=== PATIENT | male | born 1960 | race Caucasian/White ===

== ENCOUNTER 2020-01-24 12:47 | Outpatient (CLI) | payer SELFPAY ==
--- NOTE | 2020-01-24 13:03 | CT_ITS ---
WS: [id number] CT scan of the chest without IV contrast, additional two-dimensional coronal and sagittal reconstruct ion was performed. 01/24/2020 Clinical Data: LUNG NODULE Comparison: CTA chest, 09/18/2018. DLP: 603.[address] scans at [facility] use at least one of these dose optimization techniques: automat ed exposure control; mA and/or kV adjustment per patient size (includes targeted exams where dose is matched to clinical indication); or iterative reconstruction. Findings: No nodules, masses or effusions are seen. There is scarring in the right upper lobe. The scar extends from the right hilum to the lung periphery. Apical bullous emphysematous changes present. No pneumon ia or pneumothorax is noted. There is coronary artery calcification. The trachea bifurcates normally into the bronchi. The heart size is normal with no pericardial effusion. The pulmonary arterial syste m and thoracic aorta demonstrate no abnormalities or dilatations. There is no axillary or significant mediastinal adenopathy. The upper abdomen only fatty infiltration of the liver. CT/CT chest wo con [id number] Impression: 1. Right upper lobe scar. 2. Apical bullous emphysema. 3. Fatty infiltration of the liver. 4. Negative for lung nodules or masses.
== END 2020-01-24 12:48 | disposition home or self-care (01) ==
LOC: RADWPI 12:52
PROVIDERS: Family Provider Internal Medicine; PCP Internal Medicine; Visit Provider Internal Medicine
DX: R91.1 Solitary pulmonary nodule (principal); J43.9 Emphysema, unspecified; K76.0 Fatty (change of) liver, not elsewhere classified
CPT/HCPCS: 71250

== ENCOUNTER 2020-08-25 10:04 | Emergency (ER) | payer SELFPAY ==
[2020-08-25 10:21] VITALS: BP 128/76; PULSE 96; RESP 20; TEMP 36.9; O2SAT 99; BMI 23.6
--- NOTE | 2020-08-25 10:38 | XRR_ITS ---
PROCEDURE INFORMATION: Exam: XR Chest, 1 View Exam date and time: 08/25/2020 10:55 AM Age: 59 years old Clinical indication: Cough; Additional info: Dyspnea/cough TECHNIQUE: Imaging protocol: XR of the chest Views: 1 view. COMPARISON: CT chest [facility] [id number] 01/24/2020 1:11 PM FINDINGS: Lungs: Emphysema. Subtle opacity right upper lobe laterally. Correlate regarding known history. Correlate with prior CT chest. Pleural space: Unremarkable. No pleural effusion. No pneumothorax. Heart/Mediastinum: Unremarkable. No cardiomegaly. Bones/joints: Unremarkable. XR/XR chest 1V portable [id number] IMPRESSION: Emphysema. Subtle opacity right upper lobe laterally. Correlate regarding known history. Correlate with prior CT chest. Lungs are otherwise well aerated.
--- NOTE | 2020-08-25 10:38 | ECG_ITS ---
[facility] Test Date: 2020-08-25 Pat Name: Elfego Balderas Department: Room: Gender: Male Lay Out Maker: : 1960 Requested By: Thomas Glass Order Number: [id number] Ramses MD: Jose Hogue M.D. Measurements Intervals [place] Rate: 92 P: 66 RI: 144 QRS: 85 QRSD: 86 T: 48 QT: 354 QTc: 439 Interpretive Statements SINUS RHYTHM NONSPECIFIC T-WAVE ABNORMALITY Compared to ECG 09/18/2018 15:53:58 T-wave abnormality now present Sinus tachycardia no longer present ST (T wave) deviation no longer present Electronically Signed On 08-26-2020 9:17:05 BABY ATTENDANT by Jose Hogue M.D. [id number]
[2020-08-25 10:49] LABS: Basophils # 0.1 10^3/uL (0.0-0.1); Basophils % 1.1 %; Eosinophils # 0.2 10^3/uL (0.0-0.8); Eosinophils % 1.2 %; Hematocrit 34.7 % (42.0-52.0); Hemoglobin 11.9 g/dL (11.7-16.6); Lymphocytes % 15.8 %; Mean Corpuscular HGB Conc 34.3 g/dL (30.0-36.0); Mean Corpuscular Volume 96.1 fL (80-94); Mean Platelet Volume 8.6 fL (7.4-10.4); Monocytes # 1.6 10^3/uL (0.2-0.9); Monocytes % 12.6 %; Neutrophils # 8.66 10^3/uL (1.8-7.7); Neutrophils % 68.9 %; Nucleated Red Blood Cells % 0 %; Platelet Count 285 10^3/cmm (130-400); Red Blood Count 3.61 10^6/uL (4.1-5.3); Red Cell Distribution Width 15.2 % (12.1-15.1); White Blood Count 12.6 10^3/uL (4.0-10.0)
--- NOTE | 2020-08-25 10:49 | ED_ITS ---
HPI - Recheck/Abnormal Lab/Rx General: Chief Complaint: Recheck/Abnormal Lab/Rx Stated Complaint: abnormal labs Time Seen by Provider: 08/25/20 10:36 History of Present Illness: HPI narrative: 59 yo male sent to [facility] ER with complaints of hyponatremia. Patient has leg edema as recently as started on spironolactone is also on Lasix. Patient drinks heavily and continues to drink he was offended by the suggestion that he should consider stopping. Previous CT showed fatty infiltration of the liver. He denies any chest pain denies any abdominal pain he has not had any confusion or disorientation no nausea vomiting or diarrhea. Reviewing his chart he has had hyponatremia in the past although not quite the extent being reported from the clinic lab. complaint: abnormal lab Initial visit (ago): day(s) Returns today for: called because of abnormal lab/test Symptoms since prior visit: no new symptoms Context: called for abnormal lab result Associated symptoms: none Review of Systems Const: Denies: fever(s), chills, body aches, change in appetite, fatigue or malaise ENMT: Denies: throat pain, ear or mastoid pain, nasal discharge or nasal congestion Card: Denies: chest pain, edema, dyspnea on exertion or orthopnea Resp: Denies: dyspnea, productive cough or non-productive cough GI: Denies: abdominal pain, nausea, vomiting, hematemesis, coffee ground emesis, diarrhea, constipation, bloating, hematochezia or melena : Denies: flank pain, dysuria, urinary frequency or urinary urgency Seth/Lymph: Reports: easy bruising and easy bleeding [facility] ED PFSH: Social History (Updated 08/25/20 @ 10:26 by Diego Howard RN) Smoking and tobacco status: current every day smoker cigarettes Packs smoked per day: 1 Alcohol intake: current Alcohol intake frequency: 3 or more drinks per day Alcohol type: beer Substance/Drug Use: never Physical Exam Const: COMMON NORMALS: no acute distress GENERAL APPEARANCE: cooperative and comfortable ORIENTATION/CONSCIOUSNESS: Yes awake, Yes oriented to person, Yes oriented to place and Yes oriented to time HENMT: COMMON NORMALS: normocephalic, atraumatic and hearing grossly normal bilaterally HEAD & SCALP: normocephalic and atraumatic Neck/C-Spine: COMMON NORMALS: no JVD Resp: COMMON NORMALS: normal respiratory effort, No retractions, No use of accessory muscles and clear to auscultation bilaterally AUSCULTATION: clear to auscultation bilaterally Cardio: COMMON NORMALS: no JVD, regular rate, regular rhythm and No murmurs present (Cardio) RATE: regular rate RHYTHM: regular rhythm GI: COMMON NORMALS: Soft to palpation INSPECTION: Yes abdominal distension AUSCULTATION: Yes normoactive bowel sounds PALPATION: Yes Soft to palpation, No Tenderness to palpation present (GI), No Guarding due to palpation present (GI) and Yes Hepatomegaly present Extremity: GENERAL: Yes edema (2+ lower extremity edema to the level proximal to the knee.) Neuro: SENSORIUM/ORIENTATION: Yes oriented to person, Yes oriented to place and Yes oriented to time Skin: GENERAL SKIN EXAM: dry skin and ecchymosis OTHER: Patient has significant ecchymosis of his arms and forearms. No laceration. Course Vital Signs: Vital signs: Vital Signs Temperature 98.5 F 08/25/20 10:21 Pulse Rate 95 08/25/20 11:07 Respiratory Rate 20 H 08/25/20 10:21 Blood Pressure 124/73 08/25/20 11:07 Pulse Oximetry 99 08/25/20 10:21 MDM - Recheck/Abnormal Lab/Rx MDM Narrative: Medical decision making narrative: Patient is essentially asymptomatic his hyponatremia suspect it is because largely by his alcoholism and contributed to his to his a while by the Lasix. Would have him stop Lasix start and increase his spironolactone. For IV fluids. I do not think hospitalization will be necessary as the patient is essentially asymptomatic and the cause of this is known. He is not interested in the IV fluids nor is he interested in any way of stopping drinking and is quite specific about that. Encouraged him to consider as if he continues to drink this will continue to worsen his albumin is already significantly decreased. I would recommend that he follow-up with his primary care doctor early next week can return to the emergency room if he has further problems. Lab Data: Labs: Lab Results 08/25/20 08/25/20 08/25/20 Range/Units 10:38 10:38 10:38 WBC 12.6 H (4.0-10.0) 10^3/ uL RBC 3.61 L (4.1-5.3) 10^6/u L Hgb 11.9 (11.7-16.6) g/dL Hct 34.7 L (42.0-52.0) % MCV 96.1 H (80-94) fL MCH 33.0 (28.0-34.0) pg MCHC 34.3 (30.0-36.0) g/dL RDW 15.2 H (12.1-15.1) % Plt Count 285 (130-400) 10^3/c mm MPV 8.6 (7.4-10.4) fL Neut % (Auto) 68.9 % Lymph % (Auto) 15.8 % [place] % (Auto) 12.6 % Eos % (Auto) 1.2 % Baso % (Auto) 1.1 % Neut # (Auto) 8.66 H (1.8-7.7) 10^3/u L Lymph # (Auto) 2.0 (0.8-4.8) 10^3/u L [place] # (Auto) 1.6 H (0.2-0.9) 10^3/u L Eos # (Auto) 0.2 (0.0-0.8) 10^3/u L Baso # (Auto) 0.1 (0.0-0.1) 10^3/u L Nucleated RBC % (a uto) 0 % Nucleated RBCs # 0.0 /100WBC PT 14.70 (12.1-14.9) SECO NDS INR 1.11 (0.8-1.2) APTT 34.7 (23.9-36.7) SECO NDS Sodium 120 L (136-145) mmol/L Potassium 3.9 (3.5-5.1) mmol/L Chloride 89 L (98-107) mmol/L Carbon Dioxide 25 (22-29) mmol/L Anion Gap 9.9 (5-19) BUN 4 L (6-20) mg/dL Creatinine 0.5 L (0.7-1.2) mg/dL GFR Calculation 171.4 H (90-130) mL/min Glucose 97 (65-115) mg/dL Calculated Osmolal ity 247 L (285-295) mOsm/k g Calcium 7.9 L (8.5-10.5) mg/dL Magnesium 2.1 (1.7-2.3) mg/dL Total Bilirubin 2.0 H (0.15-1.2) mg/dL AST 52 H (0-40) U/L ALT 23 (0-41) U/L Alkaline Phosphata se 262 H (40-130) IU/L Total Protein 6.4 L (6.6-8.7) g/dL Albumin 2.3 L (3.5-5.2) g/dL Globulin 4.1 (1.3-4.6) g/dL Discharge Plan Discharge Patient Disposition: Home Clinical Impression: Alcohol abuse, Chronic hyponatremia, Cirrhosis with alcoholism Condition: Stable Prescriptions: Changed spironolactone 25 mg Tablet 50 mg PO DAILY@0630 Qty: 0 RF: 0 No Action furosemide 40 mg Tablet 40 mg PO DAILY@0630 RF: 0 ibuprofen 200 mg Tablet 600 mg PO Q6H PRN (Reason: Pain) RF: 0 albuterol sulfate 90 mcg/actuation Hfa Aerosol Inhaler 2 puff INHALATION QID PRN (Reason: Shortness Of Breath) RF: 0 milk thistle 1 tab PO DAILY@0630 RF: 0 Discharge Orders: Discharge ED (Routine); Ordered 08/25/20 Ordered By: Thomas Brown Referrals: Chele Moctezuma DO [Primary Care Provider] - Activity Restrictions/Additional Instructions: Recommend abstinence from alcohol. Follow-up with your doctor next week. Recommend that you stop the Lasix and increase the spironolactone to 50 mg daily. Coding Level of Care Code ED Hammer Smith for Kendrick Chu
[2020-08-25 11:07] VITALS: BP 106/74; BP 107/72; BP 124/73; PULSE 110; PULSE 95
[2020-08-25 11:26] LABS: Alanine Aminotransferase 23 U/L (0-41); Albumin Level 2.3 g/dL (3.5-5.2); Alkaline Phosphatase 262 IU/L (40-130); Anion Gap 9.9 (5-19); Aspartate Amino Transferase 52 U/L (0-40); Blood Urea Nitrogen 4 mg/dL (6-20); Calcium 7.9 mg/dL (8.5-10.5); Carbon Dioxide 25 mmol/L (22-29); Chloride 89 mmol/L (98-107); Globulin 4.1 g/dL (1.3-4.6); Glomerular Filtration Rate 171.4 mL/min (90-130); Glucose 97 mg/dL (65-115); Magnesium 2.1 mg/dL (1.7-2.3); Osmolality Calculated 247 mOsm/kg (285-295); Potassium 3.9 mmol/L (3.5-5.1); Sodium 120 mmol/L (136-145); Total Protein 6.4 g/dL (6.6-8.7)
[2020-08-25 11:37] LABS: INR 1.11 (0.8-1.2)
[2020-08-25 11:38] LABS: Partial Thromboplastin Time 34.7 SECONDS (23.9-36.7)
[2020-08-25 13:15] VITALS: BP 117/79; PULSE 96; RESP 18; O2SAT 98
--- NOTE | 2020-08-28 13:10 | DCPLANNER ---
manager metrology had message to schedule a follow up appointment for patient with primary care physician, Dr. Moctezuma at [facility]. manager metrology called [facility], a follow up appointment was scheduled for Thursday, September 17, 2020 at 10:[address] Moctezuma. manager metrology called patient and gave patient the appointment information.
--- NOTE | 2020-10-26 15:46 | DCPLANNER ---
Patient had a follow up appointment with on 09.17.20 at [facility] [place] - appointment was cancelled per Dr. Moctezuma.
== END 2020-08-25 13:17 | disposition home or self-care (01) ==
PROVIDERS: Emergency Provider Family Medicine; PCP Internal Medicine
DX: E87.1 Hypo-osmolality and hyponatremia (principal); K70.30 Alcoholic cirrhosis of liver without ascites; F10.10 Alcohol abuse, uncomplicated; F17.210 Nicotine dependence, cigarettes, uncomplicated
CPT/HCPCS: 12345; 71045; 80053; 83735; 85025; 85610; 85730; 93005; 99282; 99283

== ENCOUNTER 2020-09-25 08:21 | Emergency (ER) | payer SELFPAY ==
[2020-09-25 08:24] VITALS: BP 126/67; PULSE 103; RESP 16; TEMP 36.4; O2SAT 100; BMI 23.0
--- NOTE | 2020-09-25 08:25 | W.ED.FALL ---
HPI - Fall General: Chief Complaint: Fall Stated Complaint: Fall/ Head collision/skin tear Time Seen by Provider: 09/25/20 08:22 Source: patient and family Mode of arrival: wheelchair Limitations: no limitations History of Present Illness: HPI Narrative: Patient is a 59-year-old male who presents to ED today for evaluation following a slip and fall. Patient tells me he was checking into the [facility] for a paracentesis when he slipped on the ice and fell. He states he struck the right frontal portion of his head. There was no LOC. Patient is not on anticoagulation. He does not complain of a headache or neck pain. He reports chronic back pain that is currently at his baseline. He states he sustained a few skin tears to his right hand. Patient's last tetanus is unknown. He is also complaining of some right leg pain. Patient states he normally does not ambulate well at baseline. He has not tried to walk on the extremity since the incident. MD complaint: fall Onset (ago): minute(s) Fall from: standing Fall witnessed: yes, by family and yes, by bystander Place fall occurred: other ([facility]/hospital ) Loss of consciousness: None Prolonged down time: no Symptoms prior to fall: none Context: tripped/slipped (ice) Location of injury: head Location of injury - extremities: Right: hand and lower leg Associated symptoms-after fall: Reports no associated symptoms; Denies chest pain, headache(s), lightheadedness or neck pain Review of Systems Const: Denies: fever(s) or chills Eyes: Denies: change in vision, blurry vision or photophobia Card: Reports: edema (chronic LE edema) and swelling of feet/ankles (chronic); Denies: chest pain, palpitations, lightheadedness, syncope or pre-syncope Resp: Denies: dyspnea GI: Denies: nausea or vomiting Musc: Reports: extremity pain (R leg); Denies: neck pain, back pain, joint pain or joint swelling Skin/Breast: Reports: other (skin tears to R hand) Neuro: Denies: headache(s) [facility] ED PFSH: Social History (Updated 08/25/20 @ 10:26 by Diego Howard RN) Smoking and tobacco status: current every day smoker cigarettes Packs smoked per day: 1 Alcohol intake: current Alcohol intake frequency: 3 or more drinks per day Alcohol type: beer Physical Exam Const: COMMON NORMALS: no acute distress, patient oriented x3, no limitations and alert GENERAL APPEARANCE: cooperative ORIENTATION/CONSCIOUSNESS: Yes awake, Yes oriented to person, Yes oriented to place and Yes oriented to time HENMT: COMMON NORMALS: normocephalic, hearing grossly normal bilaterally, EAC's normal and TM's normal bilaterally HEAD & SCALP: normocephalic and other (small abrasion to R frontal ) FACE & SINUS: normal facial exam EXTERNAL AUDITORY CANAL: EAC's normal TYMPANIC MEMBRANE: TM's normal bilaterally Neck/C-Spine: COMMON NORMALS: full ROM CERVICAL SPINE: Yes cervical ROM normal, No pain with cervical ROM, No Cervical spine tenderness and No Paracervical muscle tenderness Resp: COMMON NORMALS: normal respiratory effort and clear to auscultation bilaterally AUSCULTATION: clear to auscultation bilaterally Cardio: COMMON NORMALS: regular rate and regular rhythm RATE: regular rate RHYTHM: regular rhythm GI: INSPECTION: Yes abdominal distension (scheduled for paracentesis today) Back/Pelvis: COMMON NORMALS: thoracic and lumbar spine normal to inspection, no thoracic nor lumbar tenderness and thoraco-lumbar ROM normal Extremity: NARRATIVE EXTREMITY EXAM: chronic bilateral LE 2+ pitting edema GENERAL: Yes normal exam except as noted OTHER: TTP R distal knee/proximal tib/fib; NV intact; no obvious deformities noted Neuro: [place] COMA SCALE: document GCS findings [place] coma scale eye opening: Spontaneous [place] coma scale verbal response: Orientated [place] coma scale motor response: Obey commands [place] coma scale total score: 15 COMMON NORMALS: patient oriented x3, CN's II-XII intact bilaterally, moves all extremities, no focal motor deficits and no sensory deficits noted SENSORIUM/ORIENTATION: Yes alert, Yes oriented to person, Yes oriented to place and Yes oriented to time Skin: NARRATIVE SKIN EXAM: two small superficial skin tears to dorsum of R hand/wrist Course Vital Signs: Vital signs: Vital Signs Temperature 97.5 F L 09/25/20 08:24 Pulse Rate 100 09/25/20 08:33 Respiratory Rate 18 09/25/20 08:33 Blood Pressure 126/67 09/25/20 08:33 Pulse Oximetry 100 09/25/20 08:33 MDM - Fall Imaging Data^: XR R knee: Radiologist's impression: [place] [id number] XRay Report Signed Patient: Ashkan Balderas #: [id number] : 1960Acct#:[id number] Age/Sex: 59 / MADM Date: 09/25/20 Loc: ERRoom/Bed: Attending Dr: Ordering Provider/Ordering MD: Lynda Sánchez Date of Service: 09/25/20 Procedure(s): XR knee RT 3V* [id number] Accession Number(s): [id number] Report Number: [id number] WS: [id number] RIGHT KNEE: 3 VIEW(S) TECHNIQUE: AP, oblique(s) and lateral. HISTORY: fall COMPARISON: None available. No fracture or dislocation. No joint space narrowing or osteophytes. No effusion. Diffuse osteopenia. Soft tissue vascular calcifications. XR/XR knee RT 3V* [id number] IMPRESSION: Osteopenia with no fracture. Dictated By:Linda Chester DO Signed By:Linda Chester DOSigned Date/Time:09/25/2058 DD/ 0857 XR R tib/fib: Radiologist's impression: [place] [address] XRay Report Signed Patient: Ashkan Balderas #: [id number] : 1960Acct#:[id number] Age/Sex: 59 / MADM Date: 09/25/20 Loc: ERRoom/Bed: Attending Dr: Ordering Provider/Ordering MD: Lynda Sánchez Date of Service: 09/25/20 Procedure(s): XR tibia fibula RT 2V 32212 Accession Number(s): [id number] Report Number: [id number] WS: [id number] RIGHT TIBIA-FIBULA 2 VIEWS HISTORY: fall COMPARISON: None available. No fracture, dislocation or joint abnormality. Osteopenia. Limited evaluation of the ankle. XR/XR tibia fibula RT 2V 02683 IMPRESSION: Osteopenia. No acute fractures. Ankle joint is not well visualized. Dictated By:Linda Chester DO Signed By:Linda Chesetr DOSigned Date/Time:09/25/2059 DD/ CT Head: Radiologist's impression: [address] [place] [address] CT Scan Report Signed Patient: Elfego Balderas Unit #: [id number] : 1960 Age/Sex: 59 / M ADM Date: 09/25/20 Loc: ER Room/Bed: Attending Dr: Ordering Provider/Ordering MD: Lynda Sánchez Date of Service: 09/25/20 Procedure(s): CT head wo con* 14331 Accession Number(s): [id number] Report Number: [id number] WS: [id number] CT HEAD NONCONTRAST HISTORY: trauma/fall TECHNIQUE: Contiguous axial imaging performed through the brain in 2.5 mm imaging. Bone and soft tissue windows. Sagittal and coronal reformats reviewed. All CT scans at [facility] use at least one of these dose optimization techniques: automated exposure control; mA and/or kV adjustment per patient size (includes targeted exams where dose is matched to clinical indication); or iterative reconstruction. DLP: 757.46 mGy.cm COMPARISON: None available. No acute intracranial hemorrhage, midline shift or mass effect. Moderate symmetric atrophy. Out of proportion to the patient's age. Cerebellar and cerebral atrophy with mild chronic microvascular ischemic disease. No prior large territory infarct. Ventricles: Normal size with no hydrocephalus. Paranasal sinuses: Mucoperiosteal thickening in the maxillary sinuses. Mastoid air cells: Cerumen in soft tissue in the LEFT external auditory canal. Calvarium and scalp: Skull is intact with no soft tissue edema or swelling. CT/CT head wo con* [id number] IMPRESSION: 1. No acute intracranial hemorrhage or edema. 2. Moderate symmetric atrophy out of proportion to the patient's age. Dictated By: Linda Chester DO Signed By: Linda Chester DO Signed Date/Time: 09/25/20904 DD/ 2 Discharge Plan Discharge Patient Disposition: Home Clinical Impression: Pain of right leg Fall from slipping on ice Qualifiers: Encounter type: initial encounter Qualified Code(s): W00.9XXA - Unspecified fall due to ice and snow, initial encounter Right temporal frontal scalp contusions Qualifiers: Encounter type: initial encounter Qualified Code(s): S00.03XA - Contusion of scalp, initial encounter Condition: Stable Prescriptions: No Action furosemide 40 mg Tablet 40 mg PO DAILY@0630 RF: 0 ibuprofen 200 mg Tablet 600 mg PO Q6H PRN (Reason: Pain) RF: 0 albuterol sulfate 90 mcg/actuation Hfa Aerosol Inhaler 2 puff INHALATION QID PRN (Reason: Shortness Of Breath) RF: 0 milk thistle 1 tab PO DAILY@0630 RF: 0 spironolactone 25 mg Tablet 50 mg PO DAILY@0630 Qty: 0 RF: 0 Discharge Orders: Discharge ED (Routine); Ordered 09/25/20 Ordered By: Lynda Sánchez Referrals: Chele Moctezuma DO [Primary Care Provider] - Patient Instructions: Opioid Safety Activity Restrictions/Additional Instructions: [facility] is committed to fighting the nationwide opiate epidemic. We are providing ALL patients with information regarding opiate safety. If you received opiate pain medication during your stay or if you received a prescription for opiate pain medication-please review this handout. If not, you may disregard. Thank you. Please keep the skin tears on your hand clean with warm soap and water. Monitor for signs of infection such as redness, swelling, drainage. If you continue to have pain in your right leg past 3 to 5 days, please follow-up with your primary care provider. Return to the emergency department for a severe headache, facial drooping, slurred speech, numbness or tingling to your extremities/face, or any other concerns you may have. Coding Level of Care Code ED Welder 2Nd Shift for Kendrick Fwbc Exam Comprehensive
--- NOTE | 2020-09-25 08:32 | CT_ITS ---
WS: [id number] CT HEAD NONCONTRAST HISTORY: trauma/fall TECHNIQUE: Contiguous axial imaging performed through the brain in 2.5 mm imaging. Bone and soft tiss ue windows. Sagittal and coronal reformats reviewed. All CT scans at [facility] use at ast one of these dose optimization techniques: automated exposure control; mA and/or kV adjustment pe r patient size (includes targeted exams where dose is matched to clinical indication); or iterative r econstruction. DLP: 757.46 mGy.cm COMPARISON: None available. No acute intracranial hemorrhage, midline shift or mass effect. Moderate symmetric atrophy. Out of proportion to the patient's age. Cerebellar and cerebral atrophy w ith mild chronic microvascular ischemic disease. No prior large territory infarct. Ventricles: Normal size with no hydrocephalus. Paranasal sinuses: Mucoperiosteal thickening in the maxillary sinuses. Mastoid air cells: Cerumen in soft tissue in the LEFT external auditory canal. Calvarium and scalp: Skull is intact with no soft tissue edema or swelling. CT/CT head wo con* [id number] IMPRESSION: 1. No acute intracranial hemorrhage or edema. 2. Moderate symmetric atrophy out of proportion to the patient's age.
--- NOTE | 2020-09-25 08:32 | XR_ITS ---
WS: [id number] RIGHT TIBIA-FIBULA 2 VIEWS HISTORY: fall COMPARISON: None available. No fracture, dislocation or joint abnormality. Osteopenia. Limited evaluation of the ankle. XR/XR tibia fibula RT 2V 10245 IMPRESSION: Osteopenia. No acute fractures. Ankle joint is not well visualized.
--- NOTE | 2020-09-25 08:32 | XR_ITS ---
WS: [id number] RIGHT KNEE: 3 VIEW(S) TECHNIQUE: AP, oblique(s) and lateral. HISTORY: fall COMPARISON: None available. No fracture or dislocation. No joint space narrowing or osteophytes. No effusion. Diffuse osteopenia. Soft tissue vascular calcifications. XR/XR knee RT 3V* [id number] IMPRESSION: Osteopenia with no fracture.
[2020-09-25 08:33] VITALS: BP 126/67; PULSE 100; RESP 18; O2SAT 100
[2020-09-25] MEDS: tetanus-diphtheria tox (adult) 0.5 mL SDV IM (09:05)
[2020-09-25 09:16] VITALS: BP 120/91; PULSE 98; RESP 18; TEMP 37.1; O2SAT 100
== END 2020-09-25 09:32 | disposition home or self-care (01) ==
PROVIDERS: Emergency Provider Physician Assistant; PCP Internal Medicine
DX: S00.03XA Contusion of scalp, initial encounter (principal); M79.604 Pain in right leg; W00.0XXA Fall on same level due to ice and snow, initial encounter; F17.210 Nicotine dependence, cigarettes, uncomplicated; Z23 Encounter for immunization
CPT/HCPCS: 70450; 73562; 73590; 90471; 90714; 99283

== ENCOUNTER 2020-09-25 09:38 | Outpatient (CLI) | payer SELFPAY ==
--- NOTE | 2020-09-25 09:49 | US_ITS ---
WS: [id number] ULTRASOUND-GUIDED THERAPEUTIC PARACENTESIS Procedure, risks, and complications have been explained to the patient. Consent is obtained. Utilizing aseptic technique and 1% buffered lidocaine, a small dermatome was made through which a 5 F rench Yueh catheter was inserted. Approximately 6000 ml of clear yellow peritoneal fluid was obtained without difficulty. No complications encountered. US/[place]acentesis abd w 08816 IMPRESSION: Uncomplicated paracentesis yielding 6000 ml of peritoneal fluid. There was additional peritoneal fluid present. No additional fluid removed at t his time as no albumin has been given and this is the patient's first paracente sis. Patient tolerated the procedure well. Consider and additional paracentesis in one week if clinically necessary.
== END 2020-09-25 09:39 | disposition home or self-care (01) ==
PROVIDERS: PCP Internal Medicine; Visit Provider Internal Medicine
DX: K70.30 Alcoholic cirrhosis of liver without ascites (principal)
CPT/HCPCS: 49083

== ENCOUNTER 2020-10-06 23:09 | Inpatient (IN) | payer SELFPAY ==
[2020-10-06 23:16] VITALS: BP 83/51; PULSE 101; RESP 18; O2SAT 99; BMI 23.0
[2020-10-06 23:20] VITALS: BP 83/51; PULSE 103; RESP 24; O2SAT 100
[2020-10-07] VITALS (40 sets, daily range): BP systolic 55–91; BP diastolic 34–62; PULSE 86–119; RESP 12–30; TEMP 35.9–36.4; O2SAT 91–100
--- NOTE | 2020-10-07 00:11 | CTR_ITS ---
PROCEDURE INFORMATION: Exam: CT Abdomen And Pelvis Without Contrast Exam date and time: 10/07/2020 12:29 AM Age: 59 years old Clinical indication: Patient HX: HX of alcohol cirrhosis C/O abd pain and distention PT is 11 days S/P 6 liter paracentesis TECHNIQUE: Imaging protocol: Computed tomography of the abdomen and pelvis without contrast. Radiation optimization: All CT scans at this facility use at least one of these dose optimization techniques: automated exposure control; mA and/or kV adjustment per patient size (includes targeted exams where dose is matched to clinical indication); or iterative reconstruction. COMPARISON: US paracentesis abd w [id number] 09/25/2020 9:18 AM RADIATION DOSE METRICS: Total DLP (mGy-cm): 816.19 FINDINGS: Pleural spaces: Small right pleural effusion. Liver: Cirrhotic appearing liver. Gallbladder and bile ducts: Normal. No calcified stones. No ductal dilation. Pancreas: Normal. No ductal dilation. Spleen: Normal. No splenomegaly. Adrenal glands: Normal. No mass. Kidneys and ureters: Normal. No hydronephrosis. Stomach and bowel: Diverticulosis without diverticulitis. Appendix: No evidence of appendicitis. Intraperitoneal space: Small amount of free air in the abdomen may be related to prior paracentesis, a perforated viscus is also consideration depending on the clinical presentation. Large amount of abdominal ascites. Vasculature: Coronary artery atherosclerotic calcifications. Lymph nodes: Unremarkable. No enlarged lymph nodes. Urinary bladder: Unremarkable as visualized. Reproductive: Unremarkable as visualized. Bones/joints: Unremarkable. No acute fracture. Soft tissues: Unremarkable. CT/CT abdomen pelvis wo con [id number] IMPRESSION: 1. Small amount of free air in the abdomen may be related to prior paracentesis, a perforated viscus is also consideration depending on the clinical presentation. 2. Small right pleural effusion. 3. Large amount of abdominal ascites. 4. Cirrhotic appearing liver. 5. Diverticulosis without diverticulitis. 6. Coronary artery atherosclerotic calcifications. Radiation Dose CTDIVOL = (mGy): DLP = 816.19 (mGy-cm)
--- NOTE | 2020-10-07 00:11 | XRR_ITS ---
PROCEDURE INFORMATION: Exam: XR Chest Exam date and time: 10/07/2020 12:14 AM Age: 59 years old Clinical indication: Shortness of breath; Additional info: SOB TECHNIQUE: Imaging protocol: XR of the chest Views: 1 view. COMPARISON: CR (CHEST, ) 08/25/2020 10:51 AM FINDINGS: Lungs: The lungs are clear bilaterally. Pulmonary vasculature within normal limits. Pleural space: No visible pneumothorax or pleural effusion. Heart/Mediastinum: Cardiomediastinal silhouette contour within normal limits. Bones/joints: No emergent findings identified. XR/XR chest 1V portable [id number] IMPRESSION: 1. No radiographic findings of acute cardiopulmonary disease.
[2020-10-07] MEDS: ondansetron 2 mg/ML SDV 2 mL 4 MG IVP (00:45)
[2020-10-07] MEDS: fentaNYL 50 mcg/mL INJ 2mL 25 MCG IVP (00:45)
[2020-10-07] MEDS: sodium chloride 0.9% 500 ML IV (00:45)
[2020-10-07 01:16] LABS: Basophils # 0.1 10^3/uL (0.0-0.1); Basophils % 0.6 %; Eosinophils % 0.3 %; Hematocrit 25.5 % (42.0-52.0); Hemoglobin 8.1 g/dL (11.7-16.6); Lymphocytes # 0.8 10^3/uL (0.8-4.8); Mean Corpuscular HGB Conc 31.8 g/dL (30.0-36.0); Mean Corpuscular Hemoglobin 29.5 pg (28.0-34.0); Mean Corpuscular Volume 92.7 fL (80-94); Mean Platelet Volume 8.7 fL (7.4-10.4); Monocytes # 0.8 10^3/uL (0.2-0.9); Monocytes % 9.3 %; Neutrophils # 7.09 10^3/uL (1.8-7.7); Neutrophils % 80.3 %; Nucleated Red Blood Cells % 0 %; Platelet Count 484 10^3/cmm (130-400); Red Blood Count 2.75 10^6/uL (4.1-5.3); Red Cell Distribution Width 14.4 % (12.1-15.1); White Blood Count 8.8 10^3/uL (4.0-10.0)
[2020-10-07 01:35] LABS: Alanine Aminotransferase 13 U/L (0-41); Albumin Level 2.1 g/dL (3.5-5.2); Alkaline Phosphatase 199 IU/L (40-130); Anion Gap 13.2 (5-19); Aspartate Amino Transferase 26 U/L (0-40); Blood Urea Nitrogen 16 mg/dL (6-20); C Reactive Protein 25.6 mg/L (0.0-4.9); Calcium 7.3 mg/dL (8.5-10.5); Carbon Dioxide 19 mmol/L (22-29); Chloride 93 mmol/L (98-107); Globulin 3.6 g/dL (1.3-4.6); Glomerular Filtration Rate 52.2 mL/min (90-130); Glucose 68 mg/dL (65-115); Lipase 62 U/L (13-60); Osmolality Calculated 251 mOsm/kg (285-295); Potassium 4.2 mmol/L (3.5-5.1); Sodium 121 mmol/L (136-145); Total Bilirubin 0.9 mg/dL (0.15-1.2); Total Protein 5.7 g/dL (6.6-8.7)
[2020-10-07 01:40] LABS: Lactate (Lactic Acid level) 3.3 mmol/L (0.5-2.2)
[2020-10-07 01:42] LABS: Alcohol Level < 10 mg/dL (0-10)
[2020-10-07 01:45] LABS: INR 1.08 (0.8-1.2)
[2020-10-07] MEDS: HYDROmorphone 1 mg/mL INJ 1 mL 0.5 MG IVP (03:30)
--- NOTE | 2020-10-07 03:51 | PM.HP ---
Providers/Chief Complaint Primary Care Provider: Chele Moctezuma DO Chief Complaint: ABDOMINAL PAIN History of Present Illness Elfego Balderas is a 59 year old male who has history of alcohol liver cirrhosis presented with chief complaint abdominal pain. Patient is stating that on 09/25 he had his first paracentesis when 6 L were removed, however albumin was not administered. Since then he has noted some leakage of ascitic fluid which has resolved, he did not notice any fever, vomiting, diarrhea hemoptysis, hematemesis or melanotic stools but today around 4 PM he started experiencing excruciating abdominal pain which she is describing as bandlike pattern. He also described abdominal cramps and air bubble traveling on lower part of his abdomen. Because of these concerns he came to the hospital. He is still drinking 4 beers every day and smoking 1 pack/day. Diagnostics in the ER revealed hypotension, acute anemia, AURELIA, high lactic acid, CT abdomen pelvis concerning for perforated viscus especially descending colon with pneumoperitoneum extraluminal air identified. Patient is stating that paracentesis was done on the right side. Concern for perforated viscus/mesenteric ischemia, in the ER he received small mount of fluid, I requested albumin and octreotide to be initiated and transferred to ICU and stat consult general surgery, talked with the family to describe current findings and guarded prognosis. Review of Systems Const: Reports: body aches and fatigue; Denies: fever(s) Eyes: Denies: change in vision ENMT: Denies: throat pain Card: Reports: edema, swelling of feet/ankles, dyspnea on exertion and orthopnea; Denies: chest pain Resp: Reports: dyspnea GI: Reports: abdominal pain, nausea, heartburn, bloating and GI cramping : Reports: flank pain Musc: Denies: neck pain Skin/Breast: Denies: rash Neuro: Denies: headache(s) Psych: Denies: anxiety Endo: Denies: polyuria Seth/Lymph: Denies: easy bruising All/Imm: Denies: urticaria Medications/Allergies Home Medications Medication Instructions Recorded Confirmed Last Taken Type albuterol sulfate 2 puff INHALATION QID PRN 08/25/20 08/25/20 08/24/20 History furosemide 40 mg PO DAILY@0630 08/25/20 08/25/20 08/24/20 History ibuprofen 600 mg PO Q6H PRN 08/25/20 08/25/20 Unknown History milk thistle 1 tab PO DAILY@0630 08/25/20 08/25/20 08/24/20 History spironolactone 50 mg PO DAILY@0630 #0 tab 08/25/20 08/25/20 08/24/20 Rx Allergies Allergy/AdvReac Type Severity Reaction Status Date / Time No Known Allergies Allergy Verified 10/06/20 23:19 PFSH Acute PFSH: Medical History Alcoholic cirrhosis of liver Surgical History Previous back surgery Family History Denies family history of Cancer Social History Smoking and tobacco status: current every day smoker cigarettes Packs smoked per day: 1 [ Other cigarette details: 1 pack/day ] Alcohol intake: current Alcohol intake frequency: 3 or more drinks per day Alcohol type: beer Substance/Drug Use: never Household members: spouse Housing: House Vitals/I&O/Wt Last Vital Signs Pulse 95 10/07/20 03:26 Resp 25 H 10/07/20 03:26 BP 91/56 10/07/20 03:26 Pulse Ox 100 10/07/20 03:26 10/06/20 10/06/20 10/07/20 14:59 22:59 06:59 Intake Total 500 / 500 Balance 500 / 500 Weight last 48 hrs Weight 77.111 kg Physical Exam Narrative: EXAM NARRATIVE: Middle-age male Appears malnourished and cachectic Positive signs of chronic liver cirrhosis Massive ascites with prominent abdominal wall edema and vessels, caput medusae with filling down to upwards Excruciating abdominal pain which resolved after getting opioids 3+ lower extremity edema Tachypneic due to abdominal swelling No chest pain, S1-S2 Hypotensive mean arterial pressure 64mmhg No active bleeding noticed in the ER Asterixis negative Awake alert oriented x3 GCS 15, at the bedside Data : 10/07/20 00:53 10/07/20 00:53 A&P Assessment and plan (1) Decompensated hepatic cirrhosis: Meld score 10 Acute decompensated liver cirrhosis due to active smoking and current use of alcohol Recurrent ascites, Concern for perforated viscus versus SBP, free air, extraluminal noted around ascending colon General surgery consult, start albumin and octreotide Transfer to ICU Start Zosyn, judicious use of fluids Rule out compartment syndrome due to massive ascites Status: Acute (2) AURELIA (acute kidney injury): My differential would include compartment syndrome versus hepatorenal Hold spironolactone, Lasix was discontinued by PCP Status: Acute (3) Acute anemia: Patient is not endorsing active bleeding no melanotic stools or hematemesis, With sudden excruciating pain and concern for perforated viscus, we will keep him n.p.o. Transfuse if hemoglobin drops below 7 Started on octreotide along albumin Status: Acute (4) Chronic hyponatremia: No neurological signs or symptoms, he is hypervolemic Glucose 68 Considering decompensated liver cirrhosis I would not request urine osmolarity at this point, because is obvious which is hypervolemia Status: Acute (5) Lactic acidemia: Mesenteric ischemia versus perforated viscus N.p.o. Zosyn Octreotide and albumin Status: Acute Additional A&P Information N.p.o. Patient carries guarded prognosis, current findings and critical situation explained to the family and the patient, patient wishes to stay full code DVT prophylaxis: SCDs Attestations Medical Necessity Statement*: Anticipating stay in the hospital course more than 2 midnights for the liver cirrhosis and due to anemia, concern for perforated viscus versus mesenteric ischemia, carries guarded prognosis Time Spent in Patient Care: (>than 50% of time spent in counselling and/or direct pt care on unit). 50mins, including chart review, CT scan and lab interpretation coordinating care with the ER physician and talking with the family Coding Level of Care Code Acute Raisin Separator Operator for Chg Fwd Diagnoses Decompensated hepatic cirrhosis K72.90; K74.60 AURELIA (acute kidney injury) N17.9 Acute anemia D64.9 Chronic hyponatremia E87.1 Lactic acidemia E87.2
[2020-10-07] MEDS: albumin 12.5 GM/50 ML VIAL IV ×2 (05:16→07:52)
[2020-10-07] MEDS: octreotide 100 mcg/mL SDV 50 MCG IVP (05:19)
--- NOTE | 2020-10-07 05:29 | W.ED.ABDPA2 ---
HPI - Abdominal Pain General: Chief Complaint: Abdominal Pain Stated Complaint: ABDOMINAL PAIN Time Seen by Provider: 10/06/20 23:49 History of Present Illness: HPI narrative: 59-year-old gentleman with a history of cirrhosis. He had ultrasound-guided paracentesis 2 weeks ago, where 6 L of fluid were aspirated. He notes he developed worsening belly pain about 4 days ago, with abdominal tightness and swelling to his belly and lower extremities. He denies fever. He denies vomiting. He states he has been having more trouble breathing the past couple of days, because his belly feels full and is hard to take a breath. MD elicited complaint: abdominal pain Pertinent past history: other Onset (ago): day(s) Pain Consistency: constant Location: Diffuse Severity: moderate Quality: aching and fullness Radiation: none Migration to: no migration Exacerbating factors: movement Relieving factors: nothing Context: recent surgery/procedure Associated Symptoms: Reports bloating, nausea and poor appetite; Denies chills, coffee ground emesis, constipation, dysuria, hematochezia and vomiting Review of Systems Const: Denies: fever(s) or chills Card: Denies: chest pain or palpitations Resp: Reports: dyspnea and non-productive cough; Denies: productive cough GI: Reports: nausea and bloating; Denies: vomiting, coffee ground emesis, constipation or hematochezia : Denies: dysuria PFSH ED PFSH: Medical History Alcoholic cirrhosis of liver Surgical History Previous back surgery Family History Denies family history of Cancer Social History Smoking and tobacco status: current every day smoker cigarettes Packs smoked per day: 1 [ Other cigarette details: 1 pack/day ] Alcohol intake: current Alcohol intake frequency: 3 or more drinks per day Alcohol type: beer Substance/Drug Use: never Household members: spouse Housing: House Physical Exam Const: GENERAL APPEARANCE: ill appearing, frail appearing and appears older than stated age ORIENTATION/CONSCIOUSNESS: Yes oriented to person, Yes oriented to place and Yes oriented to time HENMT: COMMON NORMALS: normocephalic, external ears normal and Normal external nose present HEAD & SCALP: normocephalic FACE & SINUS: normal facial exam NOSE: Normal external nose present and No nasal discharge present EXTERNAL EAR: Yes external ears normal Eye: COMMON NORMALS: Equal, round and reactive pupils present, EOMs intact bilaterally and conjunctivae normal EYELID: eyelids normal CONJUNCTIVA: Yes conjunctivae normal PUPIL: Yes Equal, round and reactive pupils present Neck/C-Spine: GENERAL: No tracheal deviation Chest: COMMONS NORMALS: normal inspection of the chest CHEST: No tenderness Resp: EFFORT & INSPECTION: Yes tachypneic, No respiratory distress, No retractions, Yes uses accessory muscles and No tracheal deviation AUSCULTATION: no rhonchi, wheezes and diminished lung sounds Cardio: COMMON NORMALS: regular rhythm RATE: tachycardic RHYTHM: regular rhythm HEART SOUNDS: no murmurs PERIPHERAL PULSES: radial pulses present GI: INSPECTION: Yes abdominal distension AUSCULTATION: No Hyperactive bowel sounds present and No Hypoactive bowel sounds present PALPATION: Yes Guarding due to palpation present (GI) and No Rigid due to palpation PERCUSSION: dullness to percussion and no tympanic to percussion Neuro: SENSORIUM/ORIENTATION: Yes oriented to person, Yes oriented to place and Yes oriented to time Psych: COMMON NORMALS: mental status grossly normal Skin: COMMON NORMALS: no rashes or lesions noted GENERAL SKIN EXAM: no rashes or lesions noted Course Consultations: Consultation #1: [facility] Time: 04:30 Consultation #2: [facility] Time: 04:46 Vital Signs: Vital signs: Vital Signs Pulse Rate 95 10/07/20 05:22 Respiratory Rate 23 H 10/07/20 05:22 Blood Pressure 86/58 10/07/20 05:22 Pulse Oximetry 100 10/07/20 05:22 MDM - Abdominal Pain MDM Narrative: Medical decision making narrative: 59-year-old male presenting with belly pain. He has a large amount of ascites on exam. His hemoglobin is dropped since his paracentesis 2 weeks ago. His INR is 1. He is chronically hyponatremic, but his sodium is 121. Bicarbonate is 19. His creatinine is elevated. His albumin is quite low. His blood pressure is soft, currently 86/58 with a heart rate around 100. CT of the abdomen done without contrast shows intraperitoneal air, possibly related to his paracentesis, although perforated viscus cannot be ruled out. He is started on albumin here, given octreotide. He will be covered with broad-spectrum antibiotics. Consulted hospitalist service and surgery, the concern is liver failure with recurrent ascites, and no coverage of gastroenterology/hepatology here and lack of intensive care specialty as well. Not to mention, no interventional radiology here. We are attempting to find the patient a bed at a higher level of care facility. We have been in contact with [facility] in [place]. Awaiting a callback from their team. They believe they do have an ICU bed. Lab Data: Labs: Lab Results 10/07/20 10/07/20 10/07/20 Range/Units 00:53 00:53 00:53 WBC 8.8 (4.0-10.0) 10^3/ uL RBC 2.75 L (4.1-5.3) 10^6/u L Hgb 8.1 L (11.7-16.6) g/dL Hct 25.5 L (42.0-52.0) % MCV 92.7 (80-94) fL MCH 29.5 (28.0-34.0) pg MCHC 31.8 (30.0-36.0) g/dL RDW 14.4 (12.1-15.1) % Plt Count 484 H (130-400) 10^3/c mm MPV 8.7 (7.4-10.4) fL Neut % (Auto) 80.3 % Lymph % (Auto) 9.0 % Preble % (Auto) 9.3 % Eos % (Auto) 0.3 % Baso % (Auto) 0.6 % Neut # (Auto) 7.09 (1.8-7.7) 10^3/u L Lymph # (Auto) 0.8 (0.8-4.8) 10^3/u L Preble # (Auto) 0.8 (0.2-0.9) 10^3/u L Eos # (Auto) 0.0 (0.0-0.8) 10^3/u L Baso # (Auto) 0.1 (0.0-0.1) 10^3/u L Nucleated RBC % (a uto) 0 % Nucleated RBCs # 0.0 /100WBC PT 14.30 (12.1-14.9) SECO NDS INR 1.08 (0.8-1.2) Sodium 121 L (136-145) mmol/L Potassium 4.2 (3.5-5.1) mmol/L Chloride 93 L (98-107) mmol/L Carbon Dioxide 19 L (22-29) mmol/L Anion Gap 13.2 (5-19) BUN 16 (6-20) mg/dL Creatinine 1.4 H (0.7-1.2) mg/dL GFR Calculation 52.2 L (90-130) mL/min Glucose 68 (65-115) mg/dL Calculated Osmolal ity 251 L (285-295) mOsm/k g Lactate (0.5-2.2) mmol/L Calcium 7.3 L (8.5-10.5) mg/dL Total Bilirubin 0.9 (0.15-1.2) mg/dL AST 26 (0-40) U/L ALT 13 (0-41) U/L Alkaline Phosphata se 199 H (40-130) IU/L C-Reactive Protein 25.6 H (0.0-4.9) mg/L Total Protein 5.7 L (6.6-8.7) g/dL Albumin 2.1 L (3.5-5.2) g/dL Globulin 3.6 (1.3-4.6) g/dL Lipase 62 H (13-60) U/L Ethyl Alcohol < 10 (0-10) mg/dL 10/07/20 Range/Units 01:20 WBC (4.0-10.0) 10^3/ uL RBC (4.1-5.3) 10^6/u L Hgb (11.7-16.6) g/dL Hct (42.0-52.0) % MCV (80-94) fL MCH (28.0-34.0) pg MCHC (30.0-36.0) g/dL RDW (12.1-15.1) % Plt Count (130-400) 10^3/c mm MPV (7.4-10.4) fL Neut % (Auto) % Lymph % (Auto) % Preble % (Auto) % Eos % (Auto) % Baso % (Auto) % Neut # (Auto) (1.8-7.7) 10^3/u L Lymph # (Auto) (0.8-4.8) 10^3/u L Preble # (Auto) (0.2-0.9) 10^3/u L Eos # (Auto) (0.0-0.8) 10^3/u L Baso # (Auto) (0.0-0.1) 10^3/u L Nucleated RBC % (a uto) % Nucleated RBCs # /100WBC PT (12.1-14.9) SECO NDS INR (0.8-1.2) Sodium (136-145) mmol/L Potassium (3.5-5.1) mmol/L Chloride (98-107) mmol/L Carbon Dioxide (22-29) mmol/L Anion Gap (5-19) BUN (6-20) mg/dL Creatinine (0.7-1.2) mg/dL GFR Calculation (90-130) mL/min Glucose (65-115) mg/dL Calculated Osmolal ity (285-295) mOsm/k g Lactate 3.3 H (0.5-2.2) mmol/L Calcium (8.5-10.5) mg/dL Total Bilirubin (0.15-1.2) mg/dL AST (0-40) U/L ALT (0-41) U/L Alkaline Phosphata se (40-130) IU/L C-Reactive Protein (0.0-4.9) mg/L Total Protein (6.6-8.7) g/dL Albumin (3.5-5.2) g/dL Globulin (1.3-4.6) g/dL Lipase (13-60) U/L Ethyl Alcohol (0-10) mg/dL Discharge Plan Discharge Patient Disposition: Xfer Other Clinical Impression: Decompensated hepatic cirrhosis, AURELIA (acute kidney injury), Acute anemia, Lactic acidemia, Chronic hyponatremia Condition: Stable Coding Level of Care Code ED Staff Nuclear Weapons Officer for Kjg Fwd Exam Comprehensive
[2020-10-07] MEDS: piperacillin-tazobactam 3.375 GM in sodium chloride 0.9% (plus) 50 ML IV (06:17)
--- NOTE | 2020-10-07 07:21 | P.CONIM_ITS ---
Providers/Reason For Consult Consulting Physican/Specialty*: Goyo Caballero MD Reason for Consult*: Abdominal pain/pneumoperitoneum s/p Recent Paracentesis Primary Care Provider: Chele Moctezuma DO History of Present Illness History of Present Illness Chief Complaint: My tabitha kiran History of present illness: Mr. Elfego Balderas is a pleasant 59 year old male with advanced liver disease with subsequent severe ascites that was diagnosed recently and undergone paracentesis about 12 days ago, there after patient had some relief yet he continued to have leak from the paracentesis site and today he got worsening abdominal pain mostly on the right side yet started to become more diffuse, patient describes the pain as stabbing nothing seems to make it better yet moving around makes it worse. Patient reports to me that he has been drinking about 15 cans of beer daily for the past 20 years and now he slowed down to 3 to 4 cans a day. Upon further evaluation in the emergency department a CT scan of the abdomen and pelvis was done and showed: IMPRESSION: 1. Small amount of free air in the abdomen may be related to prior paracentesis, a perforated viscus is also consideration depending on the clinical presentation. 2. Small right pleural effusion. 3. Large amount of abdominal ascites. 4. Cirrhotic appearing liver. 5. Diverticulosis without diverticulitis. 6. Coronary artery atherosclerotic calcifications. General surgery was consulted because of the concern of the free air associated with the patient's symptomatology and abdominal pain Patient was seen and evaluated in the emergency department room #16 Patient denies any fevers yet he does have chills, no nausea or hematemesis. Review of Systems General: Reports: 10 or more systems reviewed and unremarkable except in HPI and below Meds/Allergies Home Medications and Allergies Home Medications Medication Instructions Recorded Confirmed Last Taken Type albuterol sulfate 2 puff INHALATION QID PRN 08/25/20 08/25/20 08/24/20 History furosemide 40 mg PO DAILY@0630 08/25/20 08/25/20 08/24/20 History ibuprofen 600 mg PO Q6H PRN 08/25/20 08/25/20 Unknown History milk thistle 1 tab PO DAILY@0630 08/25/20 08/25/20 08/24/20 History spironolactone 50 mg PO DAILY@0630 #0 tab 08/25/20 08/25/20 08/24/20 Rx Allergies Allergy/AdvReac Type Severity Reaction Status Date / Time No Known Allergies Allergy Verified 10/07/20 08:03 PFSH Acute PFSH: Medical History Alcoholic cirrhosis of liver Surgical History Previous back surgery Family History Denies family history of Cancer Social History Smoking and tobacco status: current every day smoker cigarettes Packs smoked per day: 1 [ Other cigarette details: 1 pack/day ] Alcohol intake: current Alcohol intake frequency: 3 or more drinks per day Alcohol type: beer Substance/Drug Use: never Household members: spouse Housing: House Vitals/I&O/Wt Last Vital Signs Pulse 93 10/07/20 06:45 Resp 21 H 10/07/20 06:45 BP 75/47 10/07/20 06:45 Pulse Ox 93 10/07/20 06:45 10/06/20 10/07/20 10/07/20 22:59 06:59 14:59 Intake Total 600 / 600 Balance 600 / 600 Weight last 48 hrs Weight 170 lb Physical Exam Narrative: EXAM NARRATIVE: Patient is conscious alert oriented X3 yet in moderate distress BMI 23.1 Head and neck examination PERRLA no masses no cervical lymphadenopathy no jaundice Cardiac examination audible S1-S2 no murmurs no gallops no arrhythmias Abdomen diffusely tender severely distended. Dilated veins on the anterior abdominal wall likely due to underlying shunting for portal hypertension. Extremities bilateral lower extremities soft pitting edema A&P Assessment and plan (1) Abdominal pain: After thorough history physical examination and reviewing the chart and images with my personal interpretation, certainly the patient has an advanced liver condition that would benefit from available manager resource gastroenterology service and also for interventional radiology for possible TIPS procedure. I cannot rule out perforated viscus at this point and if the patient were to go for laparotomy he has a very guarded prognosis particularly there is no available adjunct services to support patient's overall advanced hepatopathy. Calculating MELD score shows 11 points, with estimated 3-month mortality 6% At this point after further discussing in depth and in length with the patient and his spouse and exploring different options, they do not want to be transferred to a tertiary center where more specialized services available and they would like to proceed with comfort care. I had a discussion in the presence of the patient's caring nurse and both the patient and his spouse understand the potential risks, benefits, alternatives and indications for any surgical intervention and they would like to defer for any surgery at this point. I also discussed the case prior with Dr. Maximo Lang the ER physician and the hospitalist as well as with Dr. Hancock ER physician, and all we are in agreement that the patient has dismal prognosis. Thank you for consulting general surgery to participate taking care Status: Acute Consult Attestations Medical Necessity Statement: Inpatient hospitalization for comfort care Time Spent in Patient Care: 16 - 35 minutes (>than 50% of time spent in counselling and/or direct pt care on unit) . Coding Level of Care Code Acute Maintenance Of Way Foreman for Kendrick Chu Diagnoses Abdominal pain R10.9
[2020-10-07] MEDS: morphine 4 mg/mL SDV 1 mL IVP (07:46)
--- NOTE | 2020-10-07 09:21 | PC.NURSE ---
paracentesis complete 4 liters of fluid removed patient tolerated well
[2020-10-07] MEDS: sodium chloride 0.9% 500 ML 999 ML IV (09:32)
[2020-10-07 14:24] LABS: Amylase Peritoneal Fluid 359 U/L (88-109); Glucose Peritoneal Fluid < 2.0 mg/dL
[2020-10-07] MEDS: oxyCODONE 5 mg IR Tab/Cap PO (15:16)
--- NOTE | 2020-10-07 15:51 | PC.SOCIAL ---
Diana number is [phone].
--- NOTE | 2020-10-07 15:53 | PM.PN ---
Subjective Subjective: Interval history: Patient was complaining of abdominal pain. Was requesting pain medication in addition to nausea medication. See below for remainder. Medications: Reviewed: Yes Vitals/I&O/Wt Last Vital Signs Temp 96.7 F L 10/07/20 12:00 Pulse 93 10/07/20 12:45 Resp 20 H 10/07/20 15:16 BP 76/49 10/07/20 12:45 Pulse Ox 99 10/07/20 15:16 10/07/20 10/07/20 10/07/20 06:59 14:59 22:59 Intake Total 600 / 600 550 / 550 Balance 600 / 600 550 / 550 Weight last 48 hrs Weight 77.111 kg Physical Exam Narrative: EXAM NARRATIVE: General : Cachectic male, chronically ill appearing in mild distress due to abdominal pain HEENT: Grossly unremarkable CVS : Sinus tachycardia Chest : non-labored respiration Abd: Ascites Ext: Muscle wasting, Data : 10/07/20 00:53 10/07/20 00:53 Micro: Microbiology 10/07/20 09:16 Gram Stain - Final Ascites Fluid A&P Assessment and plan (1) Acute anemia: Status: Acute (2) Lactic acidemia: Status: Acute (3) Chronic hyponatremia: Status: Acute (4) Abdominal pain: Status: Acute (5) AURELIA (acute kidney injury): Status: Acute (6) Decompensated hepatic cirrhosis: Status: Acute 59-year-old male with a past medical history significant for coronary artery disease, pulmonary embolism seen in right middle lobe segmental branches, prior cavitary pneumonia in 2019, chronic obstructive pulmonary disease, prior GI bleed, nicotine dependence, alcoholism with subsequent development of advanced alcoholic liver cirrhosis and recurrent ascites requiring paracentesis who presented to the hospital with abdominal pain. Patient recently had a paracentesis on 09/25 during which time 6 L were removed. Subsequently again had increasing abdominal ascites. Upon arrival to emergency room his initial laboratory workup showed a WBC of 8.8, hemoglobin 8.1, which was a decrease from 11.9 in August, hematocrit of 25.5 and platelet count of 484. Sodium 121, potassium 4.2, chloride 93, bicarb 19, BUN of 16 and creatinine of 1.4 which was increased from 0.5 in August. Lipase of 62. ETOH level less than 10 however patient confirmed active alcohol abuse. Imaging studies included a CT abdomen pelvis which showed small amount of free air in the abdomen either related to a prior paracentesis or a perforated viscus. Additional findings included large amount of abdominal ascites small right pleural effusion and known cirrhotic liver. General surgery was consulted. Recommendation was for transfer to tertiary care facility for possible TIPS procedure. In review of prior discussions between provider patient and family it appears that decision was made to initiate comfort care measures only. This was due to the fact that the patient did not wish to have any invasive procedures performed (other than palliative paracentesis which was performed in ER) and or transfer to outside facility. Shortly after admission patient was found to be markedly hypotensive. Systolics of less than 70. He was however alert and oriented with insight into his condition. He confirmed with myself and bedside nurse wishes to proceed only with comfort care measures with pain control. Understanding that without intervention he would likely not survive. Initial pressors, antibiotics and octreotide orders were then discontinued. Hospice services were consulted. Oral and IV pain regimen were ordered. All questions were answered and addressed. Attestations Medical Necessity Statement*: Will require further hospitalization for comfort care measures. Time Spent in Patient Care: Greater than 35 minutes (>than 50% of time spent in counselling and/or direct pt care on unit). Coding Level of Care Code Acute Computer System Technician for [facility] Diagnoses Acute anemia D64.9 Lactic acidemia E87.2 Chronic hyponatremia E87.1 Abdominal pain R10.9 AURELIA (acute kidney injury) N17.9 Decompensated hepatic cirrhosis K72.90; K74.60
[2020-10-07] MEDS: morphine 4 mg/mL SDV 1 mL 2 MG IVP ×2 (19:08→23:36)
--- NOTE | 2020-10-07 19:14 | PC.NURSE ---
Report given to NAVEED Boles.
--- NOTE | 2020-10-07 19:15 | PC.NURSE ---
Shift summary: Pt arrived to ICU around noon. Pt hypotensive. sinus tach noted. Pt cachectic appearing. Pallor is grayish. His abdomen is distended and round. He had parecentis done today while in the ED. Pt stated he wants help with his pain and comfort and that is it to Dr Hickey., while he was at bedside. Family in at visiting hours. Pt edematous. No urine this shift.He received pain meds once this shift.
--- NOTE | 2020-10-07 20:34 | PC.NURSE ---
Phone call made to to update on condition. Will call to notify if pt condition continues to deteriorate.
[2020-10-08] VITALS (22 sets, daily range): BP systolic 61–86; BP diastolic 34–57; PULSE 98–120; RESP 9–24; TEMP 35.9
[2020-10-08] MEDS: morphine 4 mg/mL SDV 1 mL 2 MG IVP ×2 (06:03→10:34)
[2020-10-08 06:14] LABS: Basophils # 0.1 10^3/uL (0.0-0.1); Basophils % 0.4 %; Eosinophils % 0.3 %; Hematocrit 24.9 % (42.0-52.0); Hemoglobin 7.9 g/dL (11.7-16.6); Lymphocytes % 6.7 %; Mean Corpuscular HGB Conc 31.7 g/dL (30.0-36.0); Mean Corpuscular Hemoglobin 29.6 pg (28.0-34.0); Mean Corpuscular Volume 93.3 fL (80-94); Mean Platelet Volume 8.9 fL (7.4-10.4); Monocytes # 1.9 10^3/uL (0.2-0.9); Monocytes % 12.4 %; Neutrophils # 12.39 10^3/uL (1.8-7.7); Neutrophils % 79.2 %; Nucleated Red Blood Cells % 0 %; Platelet Count 385 10^3/cmm (130-400); Red Blood Count 2.67 10^6/uL (4.1-5.3); Red Cell Distribution Width 14.6 % (12.1-15.1); White Blood Count 15.6 10^3/uL (4.0-10.0)
[2020-10-08 06:40] LABS: Alanine Aminotransferase 18 U/L (0-41); Albumin Level 1.7 g/dL (3.5-5.2); Alkaline Phosphatase 100 IU/L (40-130); Anion Gap 20.7 (5-19); Aspartate Amino Transferase 64 U/L (0-40); Blood Urea Nitrogen 24 mg/dL (6-20); Calcium 7.5 mg/dL (8.5-10.5); Carbon Dioxide 15 mmol/L (22-29); Chloride 94 mmol/L (98-107); Globulin 3.2 g/dL (1.3-4.6); Glomerular Filtration Rate 22.5 mL/min (90-130); Potassium 5.7 mmol/L (3.5-5.1); Sodium 124 mmol/L (136-145); Total Bilirubin 0.7 mg/dL (0.15-1.2); Total Protein 4.9 g/dL (6.6-8.7)
--- NOTE | 2020-10-08 07:00 | PC.NURSE ---
morphine admin at 0600, reassessed right after I received report.
[2020-10-08 07:24] LABS: Glucose 21 mg/dL (65-115); Osmolality Calculated 258 mOsm/kg (285-295)
[2020-10-08] MEDS: oxyCODONE 5 mg IR Tab/Cap PO (08:16)
--- NOTE | 2020-10-08 09:31 | PC.CHAP ---
Pastoral Care Encounter/Spiritual Assessment Type of Contact [] Declined reinforcing rod layer visit [] Patient/Family/Request visit [] Outpatient visit [] Follow-up visit [] Physician referral [] Code/Alert [x] Routine visit [] Staff referral [] Actively dying [x] Patient sleeping [] Family support [] [] Out of room [] Palliative care [] [] Receiving care in room [] Pre-surgical visit [] Trauma [] Long length of stay [x] ICU visit [] Other: Relational/Emotional Strength [] Patient feels connected with others/family/visitors/staff [] Distress [] Loneliness/isolation [] Abandonment Spirituality of Patient [] Person of Mee [] Attends Pentecostal of their Mee [] Believes in Prayer [] Reads Bible or Rastafari materials [] There are Spiritual issues to be addressed Coding Validator Interventions [x] Prayer [] Active listening [] Non-anxious presence [] Spiritual/emotional support [] Crisis/trauma care [] Spiritual counseling [] Bereavement support [] Provided bereavement packet [] Provided Bible/devotional materials [] Provided toy/stuffed animal, coloring book to patient or family member [] Provided Communion [] Anointing/[place] [] Salvation [x] Completed spiritual assessment [] Other: Impact on Illness or Injury [] Angry [] Fearful [] Anxious [] Often cries [] Exhaustion [] Unable to work [] Unable to attend taoism [] Unable to walk/stand [] Unable to read [] Unable to drive [] Unable to eat/drink [] Unable to sleep [] Unable to be with family [] Patient intubated [] Other: Summary Time spent with patient
--- NOTE | 2020-10-08 10:19 | P.PN_ITS ---
Subjective Subjective: Interval history: This morning he is having pain in his sacrum. Overall is feeling generally weak. Blood glucose this morning is low. He is taking small amounts of ice cream by mouth. Appetite not good. Denies trouble breathing. Denies chest pain. Overall denies any other major complaints. We will readjust his position in bed, removing the pillow as per his request. Vitals/I&O/Wt Last Vital Signs Temp 97.5 F L 10/07/20 20:00 Pulse 111 H 10/08/20 05:30 Resp 16 10/08/20 08:16 BP 67/39 10/08/20 05:30 Pulse Ox 99 10/07/20 15:16 10/07/20 10/08/20 10/08/20 22:59 06:59 14:59 Intake Total 560 Output Total 0 / 0 0 / 0 Balance 560 0 / 560 Weight last 48 hrs Weight 77.111 kg Physical Exam Const: COMMON NORMALS: no acute distress NUTRITIONAL APPEARANCE: cachectic OTHER: Generally weak. HENMT: COMMON NORMALS: oropharynx normal Neck/C-Spine: COMMON NORMALS: no JVD Resp: COMMON NORMALS: normal respiratory effort and clear to auscultation bilaterally AUSCULTATION: clear to auscultation bilaterally Cardio: COMMON NORMALS: no JVD, regular rhythm, S1 normal heart sound present, S2 normal heart sound present and No murmurs present (Cardio) RHYTHM: regular rhythm HEART SOUNDS: S1 normal heart sound present and S2 normal heart sound present GI: COMMON NORMALS: non-tender INSPECTION: Yes abdominal distension Extremity: COMMON NORMALS: no joint enlargement and no pedal edema Neuro: COMMON NORMALS: moves all extremities Skin: COMMON NORMALS: no rashes or lesions noted GENERAL SKIN EXAM: no rashes or lesions noted Data : 10/08/20 05:29 10/08/20 05:29 Micro: Microbiology 10/07/20 09:16 Gram Stain - Final Ascites Fluid Body Fluid Culture - Preliminary A&P Assessment and plan (1) Comfort measures only status: Status: Acute (2) Acute anemia: Status: Acute (3) Lactic acidemia: Status: Acute (4) Chronic hyponatremia: Status: Acute (5) Abdominal pain: Status: Acute (6) AURELIA (acute kidney injury): Status: Acute (7) Decompensated hepatic cirrhosis: Status: Acute Where continue with comfort measures only. Blood pressures persistently low. Hypoglycemia noted this morning on the labs. He is given oral sugary snacks, ice cream as tolerating. He is having quite a bit of sacral pain which we will try to manage better. We will add lidocaine patch. Continue morphine for pain as needed. Discussed with his . At this time she does not feel that she would be ready to receive them at home for comfort measures there. She is still working with discharge planning to try to set up for home hospice care. At this time we will move him out of ICU. Continue comfort measures. Discontinue any blood draws, frequent vitals, continue comfort measures alone with oral diet as tolerating. 59-year-old male with a past medical history significant for coronary artery disease, pulmonary embolism seen in right middle lobe segmental branches, prior cavitary pneumonia in 2019, chronic obstructive pulmonary disease, prior GI bleed, nicotine dependence, alcoholism with subsequent development of advanced alcoholic liver cirrhosis and recurrent ascites requiring paracentesis who presented to the hospital with abdominal pain. Patient recently had a paracentesis on 09/25 during which time 6 L were removed. Subsequently again had increasing abdominal ascites. Upon arrival to emergency room his initial laboratory workup showed a WBC of 8.8, hemoglobin 8.1, which was a decrease from 11.9 in August, hematocrit of 25.5 and platelet count of 484. Sodium 121, potassium 4.2, chloride 93, bicarb 19, BUN of 16 and creatinine of 1.4 which was increased from 0.5 in August. Lipase of 62. ETOH level less than 10 however patient confirmed active alcohol abuse. Imaging studies included a CT abdomen pelvis which showed small amount of free air in the abdomen either related to a prior paracentesis or a perforated viscus. Additional findings included large amount of abdominal ascites small right pleural effusion and known cirrhotic liver. General surgery was consulted. Recommendation was for transfer to tertiary care facility for possible TIPS procedure. In review of prior discussions between provider patient and family it appears that decision was made to initiate comfort care measures only. This was due to the fact that the patient did not wish to have any invasive procedures performed (other than palliative paracentesis which was performed in ER) and or transfer to outside facility. Shortly after admission patient was found to be markedly hypotensive. Systolics of less than 70. He was however alert and oriented with insight into his condition. He confirmed with myself and bedside nurse wishes to proceed only with comfort care measures with pain control. Understanding that without intervention he would likely not survive. Initial pressors, antibiotics and octreotide orders were then discontinued. Hospice services were consulted. Oral and IV pain regimen were ordered. All questions were answered and addressed. Attestations Medical Necessity Statement*: Continue admission due to persistent hypotension, with hyperglycemia, setting of advanced cirrhosis, comfort care measures, arrangements for hospice care at home. Coding Level of Care Code Acute Consumer Insights Intern for [facility] Fwd Diagnoses Comfort measures only status Z51.5 Acute anemia D64.9 Lactic acidemia E87.2 Chronic hyponatremia E87.1 Abdominal pain R10.9 AURELIA (acute kidney injury) N17.9 Decompensated hepatic cirrhosis K72.90; K74.60
--- NOTE | 2020-10-08 11:40 | PC.NURSE ---
Visitors: Dr Oskar lira'd to stay at bedside as pt is comfort care. Pt's mother and/or father are flying in from [facility] ill be here later today. They may come in to visit when they get here.
[2020-10-08] MEDS: lidocaine 5% Patch 1 PATCH TOPICAL (11:52)
--- NOTE | 2020-10-08 12:23 | PC.NURSE ---
Pt transferred to [place] [id number]. Belongings with pt. at bedside.
--- NOTE | 2020-10-08 14:52 | PC.NURSE ---
This nurse called to room to assess patient, patient was found with no pulse and no respirations. First nurse verify TOD 1438 by Altagracia Ramesh RN, MSN. Second verify by this nurse. Family at bedside at this time. Dr. Kwok and house steward/stewardess notified.
--- NOTE | 2020-10-08 14:57 | PC.CHAP ---
Pastoral Care Encounter/Spiritual Assessment Type of Contact [] Declined full service vending driver visit [] Patient/Family/Request visit [] Outpatient visit [] Follow-up visit [] Physician referral [] Code/Alert [] Routine visit [] Staff referral [] Actively dying [] Patient sleeping [x] Family support [x] [] Out of room [] Palliative care [] [] Receiving care in room [] Pre-surgical visit [] Trauma [] Long length of stay [] ICU visit [] Other: Relational/Emotional Strength [] Patient feels connected with others/family/visitors/staff [] Distress [] Loneliness/isolation [] Abandonment Spirituality of Patient [] Person of Mee [] Attends Restorationism of their Mee [] Believes in Prayer [] Reads Bible or Jainism materials [] There are Spiritual issues to be addressed Towboat Captain Interventions [x] Prayer [x] Active listening [x] Non-anxious presence [x] Spiritual/emotional support [] Crisis/trauma care [] Spiritual counseling [x] Bereavement support [] Provided bereavement packet [] Provided Bible/devotional materials [] Provided toy/stuffed animal, coloring book to patient or family member [] Provided Communion [] Anointing/[place] [] Salvation [] Completed spiritual assessment [] Other: Impact on Illness or Injury [] Angry [] Fearful [] Anxious [] Often cries [] Exhaustion [] Unable to work [] Unable to attend bahai [] Unable to walk/stand [] Unable to read [] Unable to drive [] Unable to eat/drink [] Unable to sleep [] Unable to be with family [] Patient intubated [] Other: Summary Towboat Captain called to provide support to family by nurse. Family is naturally upset and grieving . Son was on his in to hospital, 's mother was on her way but would not arrive until around 7 tonight. full service vending driver provided grief counsellor on the next steps and helped family decide which area home to use. Towboat Captain informed nurse of families choice of home. full service vending driver expressed deepest condolences and offered words of comfort. expressed that they would be fine and that she needed to contact other family. Towboat Captain inquired of any need's they might have then excused himself. Time spent with patient 15 min
--- NOTE | 2020-10-08 15:02 | PC.NURSE ---
MTS contacted at this time. Pt is not ruled out at this time and when family leaves [place] [facility]
--- NOTE | 2020-10-08 16:26 | PC.NURSE ---
PT WAS PLACED IN THE [place] AT 162
--- NOTE | 2020-10-08 20:56 | PM.DDS ---
Discharge Providers DDS Date of Admission: 10/07/20 11:42 Date Summary Completed: 10/08/20 Attending Provider at Admission: Diego Cruz MD Time of : 14:38 Attending Provider at Discharge: Kamran Kwok Primary Care Provider: DO PARKER Todd Diagnoses Hospital Diagnoses (1) Comfort measures only status: (2) Decompensated hepatic cirrhosis: (3) Acute anemia: (4) Lactic acidemia: (5) Chronic hyponatremia: (6) Abdominal pain: (7) AURELIA (acute kidney injury): Reason for Visit Reason for Visit: ABDOMINAL PAIN Summary Date and Time of Date of : 10/08/20 Time of : 14:38 Summary Summary: 59-year-old male with a past medical history significant for coronary artery disease, pulmonary embolism seen in right middle lobe segmental branches, prior cavitary pneumonia in 2019, chronic obstructive pulmonary disease, prior GI bleed, nicotine dependence, alcoholism with subsequent development of advanced alcoholic liver cirrhosis and recurrent ascites requiring paracentesis who presented to the hospital with abdominal pain. Patient recently had a paracentesis on 09/25 during which time 6 L were removed. Subsequently again had increasing abdominal ascites. Upon arrival to emergency room his initial laboratory workup showed a WBC of 8.8, hemoglobin 8.1, which was a decrease from 11.9 in August, hematocrit of 25.5 and platelet count of 484. Sodium 121, potassium 4.2, chloride 93, bicarb 19, BUN of 16 and creatinine of 1.4 which was increased from 0.5 in August. Lipase of 62. ETOH level less than 10 however patient confirmed active alcohol abuse. Imaging studies included a CT abdomen pelvis which showed small amount of free air in the abdomen either related to a prior paracentesis or a perforated viscus. Additional findings included large amount of abdominal ascites small right pleural effusion and known cirrhotic liver. General surgery was consulted. Recommendation was for transfer to tertiary care facility for possible TIPS procedure. In discussions between provider patient and family decision was made to initiate comfort care measures only. This was due to the fact that the patient did not wish to have any invasive procedures performed (other than palliative paracentesis which was performed in ER) and or transfer to outside facility. Shortly after admission patient was found to be markedly hypotensive. Systolics of less than 70. He was however alert and oriented with insight into his condition. He confirmed with attending physician at the time and bedside nurse wishes to proceed only with comfort care measures with pain control. Understanding that without intervention he would likely not survive. Initial pressors, antibiotics and octreotide orders were then discontinued. He was transitioned to comfort measures. Arrangements for possibility of his return home to pass away there were underway, however, patient here at 1438, without distress and with family at bedside. Discharge Plan Discharge Patient Disposition: Condition: Stable Probable Cause of Probable cause of : Cardiac arrest due to other underlying condition DS Attestations Time Spent in /Discharge Care*: greater than 30 min Quality - AMI: AMI present?: No Quality - Stroke: CVA present?: No Symptom Onset Unknown: No Quality - VTE: VTE present?: No Deep Vein Thrombosis/Pulmonary Embolism Present on Admission: No Coding Level of Care Code Acute Grass Farmer for [facility] Fwd Diagnoses Comfort measures only status Z51.5 Decompensated hepatic cirrhosis K72.90; K74.60 Acute anemia D64.9 Lactic acidemia E87.2 Chronic hyponatremia E87.1 Abdominal pain R10.9 AURELIA (acute kidney injury) N17.9
== END 2020-10-08 16:15 | disposition expired | DRG 951 ==
LOC: ER 23:49 → ICU 10-07 05:38 → MEDSURG 10-08 11:57
PROVIDERS: Family Medicine; Admitting Provider Internal Medicine; Emergency Provider Emergency Medicine; PCP Internal Medicine; Visit Provider Internal Medicine
DX: Z51.5 Encounter for palliative care (principal); K55.059 Acute (reversible) ischemia of intestine, part and extent unspecified; I26.99 Other pulmonary embolism without acute cor pulmonale; N17.9 Acute kidney failure, unspecified; E87.1 Hypo-osmolality and hyponatremia; E87.2 Acidosis; J90 Pleural effusion, not elsewhere classified; K70.31 Alcoholic cirrhosis of liver with ascites; F10.20 Alcohol dependence, uncomplicated; I10 Essential (primary) hypertension; F17.210 Nicotine dependence, cigarettes, uncomplicated; I95.9 Hypotension, unspecified; D64.9 Anemia, unspecified; K57.90 Diverticulosis of intestine, part unspecified, without perforation or abscess without bleeding; I25.10 Atherosclerotic heart disease of native coronary artery without angina pectoris; Z87.01 Personal history of pneumonia (recurrent); J44.9 Chronic obstructive pulmonary disease, unspecified; I46.9 Cardiac arrest, cause unspecified; E16.2 Hypoglycemia, unspecified; M53.3 Sacrococcygeal disorders, not elsewhere classified
CPT/HCPCS: 36415; 49083; 71045; 74176; 80053; 80307; 82150; 82945; 83605; 83615; 83690; 85025; 85610; 86140; 87070; 87075; 87205; 99285; J1170; J2270; J2354; J2405; J2543; J3010; J7040; P9047